=== PATIENT | female | born 1945 | race Caucasian/White ===

== ENCOUNTER → 2018-01-14 | Outpatient (CLI) | payer MEDICARE, BC ==
[~2018-01-14] MED LIST: REGADENOSON 0.4 MG/5 ML SYRINGE ONE
== END | disposition home or self-care (01) ==
LOC: CFH 07:07
PROVIDERS: ATTEND Internal Medicine Cardiovascular Disease
DX: G47.33 Obstructive sleep apnea (adult) (pediatric) (principal)
CPT/HCPCS: 78452; 93017; 93306; A9502; J2785

== ENCOUNTER 2018-03-23 09:01 | Inpatient (IN) | payer MEDICARE, BC ==
[~2018-03-23] VITALS: Ht 165.1 cm; Wt 87.9 kg
[2018-03-23] MEDS ORDERED: ALBUTEROL/IPRATROPIUM 2.5MG/0.5MG, 3 ML ONE ×2 (09:29→16:49)
[2018-03-23] MEDS ORDERED: ALBUTEROL/IPRATROPIUM 2.5MG/0.5MG, 3 ML NPPB SCH (09:30)
[2018-03-23 10:08] LABS: RAPID INFLUENZA A Negative (Negative); RAPID INFLUENZA B Negative (Negative)
[2018-03-23 10:13] LABS: BASOPHILS # (AUTO) 0.03 x10^3/uL (0-0.1); BASOPHILS % (AUTO) 0 % (0-1); EOSINOPHILS # (AUTO) 0.08 x10^3/uL (0-0.4); EOSINOPHILS % (AUTO) 1 % (1-7); LYMPHOCYTES # (AUTO) 1.46 x10^3/uL (1-3.4); LYMPHOCYTES % (AUTO) 15 % (22-44); MD NO; MEAN CORPUSCULAR HEMOGLOBIN 28.8 pg (27.0-34.8); MEAN CORPUSCULAR HGB CONC 33.3 g/dL (32.4-35.8); MEAN CORPUSCULAR VOLUME 86.4 fL (80-100); MEAN PLATELET VOLUME 11.5 fL (7.4-10.4); MONOCYTES # (AUTO) 1.01 x10^3/uL (0.2-0.8); MONOCYTES % (AUTO) 10 % (2-9); NEUTROPHILS # (AUTO) 7.39 x10^3/uL (1.8-6.8); NEUTROPHILS % (AUTO) 74 % (42-75); PLATELET COUNT 156 x10^3/uL (130-400); RED BLOOD COUNT 4.87 x10^6/uL (3.82-5.3); RED CELL DISTRIBUTION WIDTH 13.4 % (9.6-15.2)
[2018-03-23 10:27] LABS: ALANINE AMINOTRANSFERASE 19 U/L (12-78); ALBUMIN 3.2 g/dL (3.4-5.0); ANION GAP 4 mmol/L (5-15); CALCIUM 8.5 mg/dL (8.5-10.1); CHLORIDE 107 mmol/L (98-107); CREATININE 0.75 mg/dL (0.55-1.02)
[2018-03-23 10:31] LABS: ALKALINE PHOSPHATASE 124 U/L (45-117); BILIRUBIN,TOTAL 0.7 mg/dL (0.2-1.0); TOTAL PROTEIN 6.5 g/dL (6.4-8.2); TROPONIN I < 0.015 ng/mL (0.000-0.045)
[2018-03-23] MEDS ORDERED: AZITHROMYCIN 500 MG in SODIUM CHLORIDE 0.9% 250 ML IV ONE (13:00)
[2018-03-23] MEDS ORDERED: CEFTRIAXONE PMX 1GM/50ML 50 ML IV ONE (13:00)
[2018-03-23] MEDS ORDERED: CEFTRIAXONE PMX 1GM/50ML 50 ML ONE (13:12)
[2018-03-23] MEDS ORDERED: ATOR20TA37 PO (13:13)
[2018-03-23] MEDS ORDERED: ALBU8.5H8 INH (13:13)
[2018-03-23] MEDS ORDERED: FLUT1BLS3 PO (13:14)
[2018-03-23 14:50] VITALS: BP 111/65
[2018-03-23] MEDS: ALBUTEROL/IPRATROPIUM 2.5MG/0.5MG, 3 ML NPPB SCH ×2 (16:55→19:09)
[2018-03-23] MEDS ORDERED: ACETAMINOPHEN 325 MG TABLET PO PRN (17:00)
[2018-03-23] MEDS ORDERED: ONDANSETRON 2MG/ML, 2ML IVPush PRN (17:00)
[2018-03-23] MEDS ORDERED: POLYETHYLENE GLYCOL 17 GM PACKET PO PRN (17:00)
[2018-03-23] MEDS ORDERED: ENALAPRILAT 1.25 MG/ML, 2ML IVPush PRN (17:00)
[2018-03-23] MEDS ORDERED: KETOROLAC 30 MG/1 ML IV PRN (17:00)
[2018-03-23] MEDS ORDERED: BISACODYL 10 MG SUPP PR PRN (17:00)
[2018-03-23] MEDS ORDERED: DOCUSATE 100 MG CAPSULE PO PRN (17:00)
[2018-03-23] MEDS: DOXYCYCLINE 100 MG in DEXTROSE 5% 250 ML IV SCH (17:35)
[2018-03-23] MEDS: ENOXAPARIN 40 MG/0.4 ML SQ SCH (17:35)
[2018-03-23 19:59] VITALS: BP 114/57
[2018-03-23] MEDS: GUAIFENESIN ER 600 MG TABLET PO SCH (20:46)
[2018-03-23] MEDS: ATORVASTATIN 20 MG TABLET PO SCH (20:46)
[2018-03-23] MEDS: SODIUM CHLORIDE FLUSH 10ML SYR IVF SCH (20:47)
[2018-03-24 02:13] VITALS: BP 102/62
[2018-03-24] MEDS: DOXYCYCLINE 100 MG in DEXTROSE 5% 250 ML IV SCH ×2 (04:46→18:03)
[2018-03-24 05:51] LABS: BASOPHILS # (AUTO) 0.04 x10^3/uL (0-0.1); BASOPHILS % (AUTO) 1 % (0-1); EOSINOPHILS # (AUTO) 0.07 x10^3/uL (0-0.4); EOSINOPHILS % (AUTO) 1 % (1-7); LYMPHOCYTES # (AUTO) 2.03 x10^3/uL (1-3.4); LYMPHOCYTES % (AUTO) 24 % (22-44); MD NO; MEAN CORPUSCULAR HEMOGLOBIN 29.3 pg (27.0-34.8); MEAN CORPUSCULAR HGB CONC 34.5 g/dL (32.4-35.8); MEAN CORPUSCULAR VOLUME 84.9 fL (80-100); MEAN PLATELET VOLUME 10.9 fL (7.4-10.4); MONOCYTES # (AUTO) 0.95 x10^3/uL (0.2-0.8); MONOCYTES % (AUTO) 11 % (2-9); NEUTROPHILS # (AUTO) 5.31 x10^3/uL (1.8-6.8); NEUTROPHILS % (AUTO) 63 % (42-75); PLATELET COUNT 160 x10^3/uL (130-400); RED CELL DISTRIBUTION WIDTH 13.5 % (9.6-15.2)
[2018-03-24 06:02] LABS: ANION GAP 8 mmol/L (5-15); CALCIUM 8.5 mg/dL (8.5-10.1); CHLORIDE 105 mmol/L (98-107); CREATININE 0.71 mg/dL (0.55-1.02)
[2018-03-24 07:13] VITALS: BP 103/63
[2018-03-24] MEDS: ALBUTEROL/IPRATROPIUM 2.5MG/0.5MG, 3 ML NPPB SCH ×4 (07:30→19:17)
[2018-03-24] MEDS: (Fluticasone/Umeclidin/Vilanter (Trelegy Ellipta 100-62.5-25) HOMEINH SCH (08:30)
[2018-03-24] MEDS: GUAIFENESIN ER 600 MG TABLET PO SCH ×2 (08:32→20:15)
[2018-03-24] MEDS: SODIUM CHLORIDE FLUSH 10ML SYR IVF SCH ×2 (08:33→20:15)
[2018-03-24] MEDS ORDERED: ALBUTEROL SULFATE 2.5 MG/3 ML NPPB SCH (09:00)
[2018-03-24] MEDS ORDERED: ALBUTEROL SULFATE 2.5 MG/3 ML NPPB PRN (09:00)
[2018-03-24 12:11] VITALS: BP 97/55
[2018-03-24 12:27] VITALS: BP 111/74
[2018-03-24] MEDS: CEFTRIAXONE PMX 1GM/50ML 50 ML IV SCH (13:15)
[2018-03-24] MEDS: ENOXAPARIN 40 MG/0.4 ML SQ SCH (18:03)
[2018-03-24] MEDS: ATORVASTATIN 20 MG TABLET PO SCH (20:15)
[2018-03-24 22:12] VITALS: BP 120/78
[2018-03-24 22:30] VITALS: BP 107/66
[2018-03-25 03:30] VITALS: BP 103/65
[2018-03-25] MEDS ORDERED: ALBUTEROL/IPRATROPIUM 2.5MG/0.5MG, 3 ML NPPB SCH (07:00)
[2018-03-25] MEDS: ALBUTEROL/IPRATROPIUM 2.5MG/0.5MG, 3 ML NPPB SCH ×3 (07:00→12:17)
[2018-03-25] MEDS: DOXYCYCLINE 100 MG in DEXTROSE 5% 250 ML IV SCH (07:14)
[2018-03-25 07:39] VITALS: BP 110/72
[2018-03-25] MEDS: (Fluticasone/Umeclidin/Vilanter (Trelegy Ellipta 100-62.5-25) HOMEINH SCH (09:00)
[2018-03-25] MEDS: SODIUM CHLORIDE FLUSH 10ML SYR IVF SCH (09:27)
[2018-03-25] MEDS: GUAIFENESIN ER 600 MG TABLET PO SCH (09:58)
[2018-03-25] MEDS ORDERED: DOXY100T PO (10:39)
[2018-03-25] MEDS ORDERED: PRED5TAB PO (10:39)
[2018-03-25] MEDS ORDERED: CEFD300C37 PO (10:39)
[2018-03-25] MEDS: CEFTRIAXONE PMX 1GM/50ML 50 ML IV SCH (11:19)
[2018-03-25 12:05] VITALS: BP 120/78
== END 2018-03-25 13:19 | disposition home or self-care (01) | DRG 193 ==
LOC: ED 10:43 → EDIP 12:53 → 4WST 14:51 → 4NOR 03-24 22:30 → DCLOUNGE 03-25 12:54
PROVIDERS: ADMIT Internal Medicine; ATTEND Family Medicine
DX: J18.1 Lobar pneumonia, unspecified organism (principal); J96.21 Acute and chronic respiratory failure with hypoxia; J44.0 Chronic obstructive pulmonary disease with (acute) lower respiratory infection; E44.0 Moderate protein-calorie malnutrition; J44.1 Chronic obstructive pulmonary disease with (acute) exacerbation; B34.9 Viral infection, unspecified; G47.33 Obstructive sleep apnea (adult) (pediatric); E78.5 Hyperlipidemia, unspecified; E66.9 Obesity, unspecified; Z68.32 Body mass index [BMI] 32.0-32.9, adult; Z66 Do not resuscitate; Z82.49 Family history of ischemic heart disease and other diseases of the circulatory system; Z90.710 Acquired absence of both cervix and uterus; Z83.3 Family history of diabetes mellitus; Z99.81 Dependence on supplemental oxygen; Z98.42 Cataract extraction status, left eye; Z98.41 Cataract extraction status, right eye
CPT/HCPCS: 36415; 71046; 71250; 80048; 80053; 83605; 83880; 84145; 84484; 85025; 87040; 87400; 93005; 94640; G0378; J0696; J1650; J7060; J7620; J7512

== ENCOUNTER 2018-10-08 08:24 | Outpatient (CLI) | payer MEDICARE, BC ==
[~2018-10-08 08:24] MED LIST changes: +ALBU8.5H8 INH; +ATOR20TA37 PO; +CEFD300C37 PO; +DOXY100T PO; +FLUT1BLS3 PO; +PRED5TAB PO; -REGADENOSON 0.4 MG/5 ML SYRINGE ONE
== END 2018-10-08 23:59 | disposition home or self-care (01) ==
LOC: CFH 08:24
PROVIDERS: ATTEND Registered Nurse
DX: J98.11 Atelectasis (principal)
CPT/HCPCS: 71250

== ENCOUNTER 2019-07-16 10:40 | Outpatient (CLI) | payer MEDICARE, BC | END 2019-07-16 23:59 | disposition home or self-care (01) | LOC: CVU 10:40 | PROVIDERS: ATTEND Internal Medicine Cardiovascular Disease | DX: I34.0 Nonrheumatic mitral (valve) insufficiency (principal); J44.9 Chronic obstructive pulmonary disease, unspecified | CPT/HCPCS: 93306 ==